=== PATIENT | female | born 1990 | race Caucasian/White ===

== ENCOUNTER 2019-05-20 23:01 | Emergency (ER) | payer BC, SELFPAY ==
[2019-05-20] MEDS ORDERED: NA CHLORIDE 0.9% 1,000 ML ONE (23:30)
[2019-05-21 00:09] LABS: Absolute Lymphocytes (CBC) 4.1 K/uL (0.7-4.9); Basophils % 0.7 % (0-1.3); Hematocrit 38.8 % (36.0-45.0); Lymphocytes % 30.7 % (15.3-44.8); MPV 9.6 fL (7.6-11.3)
[2019-05-21 00:20] LABS: Albumin 3.9 g/dL (3.4-5.0); Bilirubin Direct 0.2 mg/dL (0-0.2); Bilirubin Total 0.7 mg/dL (0.2-1.0); Potassium 3.5 mmol/L (3.5-5.1); Protein, Total 7.7 g/dL (6.4-8.2)
[2019-05-21 01:11] LABS: Urine Blood NEGATIVE (NEG); Urine Glucose NEGATIVE (NEG); Urine Protein 1+ (NEG); Urine Specific Gravity 1.015 (1.005-1.030)
[2019-05-21 01:38] LABS: Urine Culture Reflex Order REFLEXED
[2019-05-21 01:39] LABS: Urine Bacteria 20-50 /HPF (<20); Urine RBC NONE SEEN /HPF (NONE SEEN)
--- NOTE | 2019-05-21 03:42 | ER ---
Nurse's Notes [facility] Name: Jordan Perez Age: 28 yrs Sex: Female : 1990 Arrival Date: 05/20/2019 Time: 23:10 Bed 8 Private MD: Diagnosis: Dehydration;Near Syncope;Orthostatic hypotension Presentation: 05/20 23:15 Presenting complaint: EMS states: pt was at work at her desk and became dizzy. pt had ak1 GI sleeve 05/08/19. pt denies any post sx issues. pt c/o left upper abd pain. EMS reported FSBG 100. EMS started 20G IV to right AC and gave 100mL NS. Transition of care: patient was not received from another setting of care. Onset of symptoms was May 20, 2019. Risk Assessment: Do you want to hurt yourself or someone else? Patient reports no desire to harm self or others. Initial Sepsis Screen: Does the patient meet any 2 criteria? No. Patient's initial sepsis screen is negative. Does the patient have a suspected source of infection? No. Patient's initial sepsis screen is negative. Care prior to arrival: None. 23:15 Method Of Arrival: EMS: [facility] ak1 23:15 Acuity: LAXMI 2 ak1 Triage Assessment: 23:19 General: Appears in no apparent distress. Behavior is calm, cooperative. Pain: ak1 Complains of pain in left upper quadrant. EENT: No signs and/or symptoms were reported regarding the EENT system. Neuro: Level of Consciousness is awake, alert, obeys commands, Oriented to person, place, time, situation, Appropriate for age Moves all extremities. Cardiovascular: No deficits noted. Respiratory: No deficits noted. GI: Abdomen is round non-distended, Abdomen is tender to palpation in left upper quadrant. : No signs and/or symptoms were reported regarding the genitourinary system. Derm: No signs and/or symptoms reported regarding the dermatologic system. Musculoskeletal: No signs and/or symptoms reported regarding the musculoskeletal system. 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 - Family history:: not pertinent. - Ebola Screening: : No symptoms or risks identified at this time. - Social history:: Smoking status: Patient/guardian denies using tobacco. - Hospitalizations: : Patient was recently seen at. Screenin:27 Abuse screen: Denies threats or abuse. Denies injuries from another. Nutritional ak1 screening: No deficits noted. Tuberculosis screening: No symptoms or risk factors identified. Fall Risk IV access (20 points). Assessment: 23:25 Reassessment: Patient appears in no apparent distress at this time. No changes from ak1 previously documented assessment. see triage assessment. General: Appears in no apparent distress. Behavior is calm, cooperative. 05/21 00:00 Reassessment: Patient appears in no apparent distress at this time. Patient is alert, ak1 oriented x 3, equal unlabored respirations, skin warm/dry/pink. 00:34 Reassessment: pt ambulated to restroom. ak1 01:30 Reassessment: Patient appears in no apparent distress at this time. Patient and/or ak1 family updated on plan of care and expected duration. Pain level reassessed. Patient is alert, oriented x 3, equal unlabored respirations, skin warm/dry/pink. pt ambulated to restroom with steady gait. Patient states feeling better. Patient states symptoms have improved. 03:52 Reassessment: No changes from previously documented assessment. Patient and/or family ak1 updated on plan of care and expected duration. Pain level reassessed. Patient is alert, oriented x 3, equal unlabored respirations, skin warm/dry/pink. Patient states feeling better. Patient states symptoms have improved. Vital Signs: 05/20 23:05 BP 94 / 56 LA Supine (auto/reg); Pulse 94; Resp 18; Temp 97.7; Pulse Ox 97% on R/A; ak1 Weight 152.86 kg (R); Height 5 ft. 8 in. (172.72 cm) (R); Pain 0/10; 23:10 BP 95 / 66 LA Sitting (auto/reg); Pulse 97; Resp 18; Pulse Ox 97% ; ak1 23:14 BP 80 / 44 LA Standing (auto/reg); Pulse 111; Resp 18; Pulse Ox 95% on R/A; ak1 05/21 00:01 BP 111 / 61 LA Supine (auto/reg); Pulse 73; Resp 16; Pulse Ox 97% on R/A; ak1 01:22 BP 125 / 73 LA Sitting (auto/reg); Pulse 72; Resp 16; Pulse Ox 99% on R/A; ak1 02:09 BP 118 / 62; Pulse 68; Resp 16; Pulse Ox 98% on R/A; ak1 03:33 BP 101 / 68; Pulse 60; Resp 14; Temp 98.1; Pulse Ox 98% on R/A; ak1 05/20 23:05 Body Mass Index 51.24 (152.86 kg, 172.72 cm) ak1 ED Course: 05/20 23:00 Patient has correct armband on for positive identification. Bed in low position. Call ak1 light in reach. Side rails up X 1. Pulse ox on. NIBP on. 23:05 Arm band placed on Patient placed in an exam room, on a stretcher, on pulse oximetry, ak1 Patient notified of wait time. 23:10 Patient arrived in ED. cf2 23:11 Hernesto Vieira MD is Attending Physician. rn 23:12 Paris Pham, JAY is Primary Nurse. ak1 23:17 Triage completed. ak1 23:27 Initial lab(s) drawn, by ED staff, sent to lab. EKG done, by ED staff, reviewed by ak1 Hernesto Vieira MD. Maintain EMS IV. Dressing intact. Good blood return noted. Site clean \T\ dry. Gauge \T\ site: 20g right AC. 23:35 Basic Metabolic Panel Sent. ak1 23:35 CBC with Diff Sent. ak1 23:35 Creatinine for Radiology Sent. ak1 23:35 Hepatic Function Sent. ak1 23:35 Lipase Sent. ak1 05/21 00:02 Basic Metabolic Panel Sent. ak1 00:02 CBC with Diff Sent. ak1 00:02 Creatinine for Radiology Sent. ak1 00:02 Hepatic Function Sent. ak1 00:02 Lipase Sent. ak1 01:11 CT completed. Patient tolerated procedure well. Patient moved to CT WALKED. Patient eh moved back from CT. 01:16 CT Abd/Pelvis - IV Contrast Only In Process Unspecified. EDMS 03:52 No provider procedures requiring assistance completed. IV discontinued, intact, ak1 bleeding controlled, No redness/swelling at site. Pressure dressing applied. Administered Medications: 05/20 23:00 Drug: NS 0.9% 1000 ml {Note: EMS 1000mL continued for a total of 2000mL per provider. ak1 .} Route: IV; Rate: 1000 ml; Site: right antecubital; 05/21 00:34 Follow up: IV Status: Completed infusion; IV Intake: 1000ml ak1 05/20 23:34 Drug: NS 0.9% 1000 ml Route: IV; Rate: 1000 ml; Site: right antecubital; ak1 05/21 01:27 Follow up: IV Status: Completed infusion; IV Intake: 1000ml ak1 Intake: 00:34 IV: 1000ml; Total: 1000ml. ak1 01:27 IV: 1000ml; Total: 2000ml. ak1 Outcome: 03:42 Discharge ordered by . rn 03:52 Discharged to home ambulatory. ak1 03:52 Condition: good 03:52 Discharge instructions given to patient, Instructed on discharge instructions, follow up and referral plans. Demonstrated understanding of instructions, follow-up care. 03:52 Patient left the ED. ak1 Signatures: Dispatcher [employer] Stef Mojica Roman, MD MD rn Krenek, Amber, RN RN ak1 Zacarias Becker cf2
--- NOTE | 2019-05-21 03:43 | EDPHYS ---
Physician Documentation [facility] Name: Jordan Perez Age: 28 yrs Sex: Female : 1990 Arrival Date: 05/20/2019 Time: 23:10 Bed 8 Private MD: ED Physician Hernesto Vieira HPI: 05/20 23:13 This 28 yrs old Female presents to ER via Unassigned with complaints of rn Dizziness. 23:13 The patient presents with dizziness, feeling faint. Onset: The symptoms/episode rn began/occurred today. Context: occurred at work, occurred while the patient was standing, just prior to the episode the patient experienced no apparent symptoms. Modifying factors: The symptoms are alleviated by lying down, the symptoms are aggravated by standing up, changing position. Severity of symptoms: At their worst the symptoms were moderate in the emergency department the symptoms have improved. The patient has experienced similar episodes in the past. The patient has been recently seen by a physician:. REports about 2 weeks post-op from gastric sleeve, had been on liquid pre-op diet, and since surgery has been doing ok. Reports decreased appetite, and resultant decreased PO intake. NO fever/diarrhea/vomiting. Reports today felt mild left sided abd pain. NO trauma. HR elevated and BP low for EMS, orthostatics +, given some fluids and improvement of symptoms. . 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 - Family history:: not pertinent. - Ebola Screening: : No symptoms or risks identified at this time. - Social history:: Smoking status: Patient/guardian denies using tobacco. - Hospitalizations: : Patient was recently seen at. ROS: 23:13 Constitutional: Negative for fever, chills, and weight loss, Eyes: Negative for injury, rn pain, redness, and discharge, Neck: Negative for injury, pain, and swelling, Cardiovascular: Negative for chest pain, palpitations, and edema, Respiratory: Negative for shortness of breath, cough, wheezing, and pleuritic chest pain, Abdomen/GI: Negative for nausea, vomiting, diarrhea, and constipation, : Negative for injury, bleeding, discharge, and swelling, MS/Extremity: Negative for injury and deformity, Skin: Negative for injury, rash, and discoloration, Neuro: Negative for headache, numbness, tingling, and seizure. Exam: 23:13 Constitutional: This is a well developed, well nourished patient who is awake, alert, rn appears anxious Head/Face: Normocephalic, atraumatic. Eyes: Pupils equal round and reactive to light, extra-ocular motions intact. Lids and lashes normal. Conjunctiva and sclera are non-icteric and not injected. Cornea within normal limits. Periorbital areas with no swelling, redness, or edema. ENT: dry MM Cardiovascular: Regular rate and rhythm. No pulse deficits. Respiratory: No increased work of breathing, no retractions or nasal flaring. Abdomen/GI: soft, mild left sided tenderness without guarding or rebound, no masses MS/ Extremity: Pulses equal, no cyanosis. Neurovascular intact. Full, normal range of motion. Equal circumference. Neuro: Awake and alert, GCS 15, oriented to person, place, time, and situation. Cranial nerves II-XII grossly intact. Motor strength 5/5 in all extremities. Sensory grossly intact. Cerebellar exam normal. 23:35 ECG was reviewed by the Attending Physician. rn Vital Signs: 23:05 BP 94 / 56 LA Supine (auto/reg); Pulse 94; Resp 18; Temp 97.7; Pulse Ox 97% on R/A; ak1 Weight 152.86 kg (R); Height 5 ft. 8 in. (172.72 cm) (R); Pain 0/10; 23:10 BP 95 / 66 LA Sitting (auto/reg); Pulse 97; Resp 18; Pulse Ox 97% ; ak1 23:14 BP 80 / 44 LA Standing (auto/reg); Pulse 111; Resp 18; Pulse Ox 95% on R/A; ak1 05/21 00:01 BP 111 / 61 LA Supine (auto/reg); Pulse 73; Resp 16; Pulse Ox 97% on R/A; ak1 01:22 BP 125 / 73 LA Sitting (auto/reg); Pulse 72; Resp 16; Pulse Ox 99% on R/A; ak1 02:09 BP 118 / 62; Pulse 68; Resp 16; Pulse Ox 98% on R/A; ak1 03:33 BP 101 / 68; Pulse 60; Resp 14; Temp 98.1; Pulse Ox 98% on R/A; ak1 05/20 23:05 Body Mass Index 51.24 (152.86 kg, 172.72 cm) ak1 MDM: 05/20 23:11 Patient medically screened. rn 05/21 02:25 Differential diagnosis: hypovolemia, near-syncope. Data reviewed: vital signs, nurses rn notes, lab test result(s), and as a result, I will discharge patient. Counseling: I had a detailed discussion with the patient and/or guardian regarding: the historical points, exam findings, and any diagnostic results supporting the discharge/admit diagnosis, lab results, the need for outpatient follow up, to return to the emergency department if symptoms worsen or persist or if there are any questions or concerns that arise at home. Response to treatment: the patient's symptoms have markedly improved after treatment, the patient's condition has returned to base line, the patient is now symptom free, patient is well hydrated. and as a result, I will discharge patient. Special discussion: I discussed with the patient/guardian in detail that at this point there is no indication for admission to the hospital. It is understood, however, that if the symptoms persist or worsen the patient needs to return immediately for re-evaluation. ED course: delay due to radiology, have apologized to patient, still waiting on CT abdomen read. . 05/20 23:12 Order name: Basic Metabolic Panel; Complete Time: : rn 05/20 23:12 Order name: CBC with Diff; Complete Time: : rn 05/20 23:12 Order name: Creatinine for Radiology; Complete Time: : rn 05/20 23:12 Order name: Hepatic Function; Complete Time: : rn 05/20 23:12 Order name: Lipase; Complete Time: : rn 05/20 23:12 Order name: Urine Microscopic Only; Complete Time: 01:51 rn 05/20 23:12 Order name: IV Saline Lock; Complete Time: 23:35 rn 05/20 23:12 Order name: CT Abd/Pelvis - IV Contrast Only rn 05/20 23:12 Order name: EKG; Complete Time: 23:13 rn 05/21 00:49 Order name: Urine Dipstick--Ancillary (enter results); Complete Time: 01:51 mw2 05/21 00:49 Order name: Urine --Ancillary (enter results); Complete Time: 01:51 mw2 05/21 01:40 Order name: Urine Culture EDRI 05/20 23:12 Order name: Labs collected and sent; Complete Time: 23:35 rn 05/20 23:12 Order name: Urine Test (obtain specimen); Complete Time: 00:44 rn 05/20 23:12 Order name: Urine Dipstick-Ancillary (obtain specimen); Complete Time: 00:41 rn 05/20 23:12 Order name: EKG - Nurse/Tech; Complete Time: 23:27 rn EC/16 23:35 Rate is 89 beats/min. Rhythm is regular. QRS [place] is Normal. MD interval is normal. QRS rn interval is normal. QT interval is normal. No Q waves. T waves are Normal. No ST changes noted. Clinical impression: NSR w/ Non-specific ST/T Changes. Interpreted by me. Reviewed by me. Administered Medications: 23:00 Drug: NS 0.9% 1000 ml {Note: EMS 1000mL continued for a total of 2000mL per provider. ak1 .} Route: IV; Rate: 1000 ml; Site: right antecubital; 05/21 00:34 Follow up: IV Status: Completed infusion; IV Intake: 1000ml ak1 05/20 23:34 Drug: NS 0.9% 1000 ml Route: IV; Rate: 1000 ml; Site: right antecubital; ak1 05/21 01:27 Follow up: IV Status: Completed infusion; IV Intake: 1000ml ak1 Disposition: 05/21/19 03:42 Discharged to Home. Impression: Dehydration, Near Syncope, Orthostatic hypotension. - Condition is Stable. - Discharge Instructions: Dehydration, Adult, Near-Syncope, Orthostatic Hypotension. - Medication Reconciliation Form, Thank You Letter, Antibiotic Education, Prescription Opioid Use, Work release form form. - Follow up: Private Physician; When: As needed; Reason: Recheck today's complaints, Re-evaluation by your physician. - Problem is new. - Symptoms have improved. Signatures: Dispatcher [employer] EDMS Hernesto Vieira MD MD rn Krenek, Amber, RN RN ak1 Corrections: (The following items were deleted from the chart) 03:52 03:42 05/21/2019 03:42 Discharged to Home. Impression: Dehydration; Near Syncope; ak1 Orthostatic hypotension. Condition is Stable. Discharge Instructions: Dehydration, Adult, Near-Syncope, Orthostatic Hypotension. Forms are Medication Reconciliation Form, Thank You Letter, Antibiotic Education, Prescription Opioid Use. Follow up: Private Physician; When: As needed; Reason: Recheck today's complaints, Re-evaluation by your physician. Problem is new. Symptoms have improved. rn
[2019-05-21 04:19] VITALS: O2SAT 98
[2019-05-21 04:20] VITALS: BP 101/68; TEMP 98.1
--- NOTE | 2019-05-21 05:14 | EKG ---
Test Date: 2019-05-20 Test Time: 23:19:50 Manager Statistical Programming: HAZEL MEASUREMENT RESULTS: Intervals: Rate: 89 MA: 158 QRSD: 108 QT: 366 QTc: 445 [place]: P: 60 MA: 158 QRS: 68 T: 40 INTERPRETIVE STATEMENTS: Normal sinus rhythm Incomplete right bundle branch block Borderline ECG No previous ECG available for comparison Electronically Signed On 05-21-19 05:13:28 CDT by Ej Hernandez
--- NOTE | 2019-05-21 10:49 | RAD REPORT ---
EXAM DESCRIPTION: CT - Abdomen Pelvis W Contrast - 05/21/2019 6:26 am CLINICAL HISTORY: Abdominal pain. Two weeks postoperative gastric sleeve. COMPARISON: None. TECHNIQUE: Axial CT imaging of the abdomen and pelvis performed with intravenous contrast. Reformatt ed coronal and sagittal images reviewed. A dose reduction technique was utilized with automated exposure control according to patient size. FINDINGS: Heart is normal in size. No pericardial fluid. Mild right lateral lower lobe subpleural at electasis/scar. The liver is enlarged to greater than 25 cm. Normal hepatic attenuation. No liver mass or biliary dil atation. Gallbladder has been resected. The spleen is enlarged to 14.8 cm. Normal pancreas. Normal ad renal glands. There is slight fullness of the right and left renal pelvis with no obstructing etiolog y. No urinary tract stone or mass. Normal aorta and inferior vena cava caliber. No adenopathy. Mesenteric vessels appear normal. There i s evidence of gastric sleeve. Small hiatal hernia. There is slight lateral perigastric edema. Small b owel loops appear normal. There are large appendicoliths within the appendiceal lumen and the central upper pelvis without evidence of appendicitis. No mesenteric adenopathy. No ascites or free air. Tin y fat-containing umbilical hernia. Normal bladder. Normal uterus and ovaries. No pelvic free fluid. Normal lumbar alignment. No subluxat ion. Normal hips. IMPRESSION: 1. Status post gastric sleeve with minimal residual postoperative lateral perigastric ed regine. Small hiatal hernia is present. No evidence of postoperative leak or abscess. 2. Hepatosplenomegaly. 3. Slight fullness of the right and left renal pelvis with no obstructing etiology. 4. Numerous appendicoliths without evidence of appendicitis. Electronically signed by: Rae Baker DO 05/21/2019 3:00 AM CDT Due to temporary technical issues with the PACS/Fluency reporting system, reports are being signed by the in house radiologist as a courtesy to ensure prompt reporting. The interpreting radiologist is f ully responsible for the content of the report.
== END 2019-05-21 03:52 | disposition home or self-care (01) ==
LOC: ER 23:01
DX: E86.0 Dehydration (principal); I95.1 Orthostatic hypotension; I10 Essential (primary) hypertension; Z88.0 Allergy status to penicillin
CPT/HCPCS: 36415; 74177; 80048; 80076; 81003; 81015; 81025; 83690; 85025; 87086; 87088; 93005; 96360; 96361; 99284; J7030; Q9967